=== PATIENT | female | born 1965 | race Caucasian/White ===

== ENCOUNTER 2017-01-14 17:49 | Emergency (ER) | payer SELFPAY ==
[~2017-01-14 17:49] MED LIST: ALBU6.7H INH; ASPI81TA45 PO; BACL10TA PO; CHLO1TAB PO; DIAZ2 PO; LEVO.112 PO; METO50CR PO
[2017-01-14 17:52] VITALS: BP 187/104; PULSE 89; RESP 13; TEMP 97.8; O2SAT 99
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
[2017-01-14] MEDS ORDERED: LEVO112T2 PO (18:04)
[2017-01-14] MEDS ORDERED: METO50TA11 PO (18:04)
[2017-01-14] MEDS ORDERED: BUPR75TA PO (18:04)
[2017-01-14] MEDS ORDERED: DIAZ2TAB PO (18:06)
[2017-01-14] MEDS ORDERED: BACL10TA PO (18:06)
[2017-01-14] MEDS ORDERED: LOVA40TA PO (18:06)
--- NOTE | 2017-01-14 18:23 | RADRPT ---
EXAM DATE/TIME: 01/14/2017 18:11 [facility] COMPARISON: No previous studies available for comparison. INDICATIONS : Right ankle pain after fall. MEDICAL HISTORY : None. SURGICAL HISTORY : None. ENCOUNTER: Initial ACUITY: 3 days PAIN SCORE: 10/10 LOCATION: Right lateral ankle. FINDINGS: Three view exam was performed of the right ankle. A displaced fracture of the distal fibula. Soft tis foreign swelling. Ankle mortise intact. No radiopaque foreign bodies are seen. Bony mineralization is n ormal. CONCLUSION: Mildly displaced fracture distal fibula. Simba Acosta MD on January 14, 2017 at 18:20 Board Certified Radiologist. This report was verified electronically.
--- NOTE | 2017-01-14 18:23 | RADRPT ---
EXAM DATE/TIME: 01/14/2017 18:12 [facility] COMPARISON: No previous studies available for comparison. INDICATIONS : Right knee pain after fall. MEDICAL HISTORY : None. SURGICAL HISTORY : None. ENCOUNTER: Initial ACUITY: 3 days PAIN SCORE: 10/10 LOCATION: Right lateral distal knee. FINDINGS: Four view examination of the right knee demonstrates no evidence of fracture or dislocation. Bony mi neralization is normal. The articular surfaces are intact. Questionable small effusion. The suprapa tellar soft tissues have a normal configuration. CONCLUSION: No acute fracture with questionable small effusion. Simba Acosta MD on January 14, 2017 at 18:21 Board Certified Radiologist. This report was verified electronically.
[2017-01-14] MEDS ORDERED: ACETAMINOPHEN/HYDROcodone 325 MG/5 MG TAB PO ONE (19:15)
--- NOTE | 2017-01-14 19:16 | PD ---
Physical Exam Date Seen by Provider: Jan 14, 2017 Time Seen by Provider: 19:14 Data Data Last Documented VS Vital Signs Date Time Temp Pulse Resp B/P Pulse Ox O2 Delivery O2 Flow Rate FiO2 01/14/17 17:52 97.8 89 13 187/104 99 Orders Ankle, Complete ([id number]) (01/14/17 18:00) Knee, Complete (4vws) (01/14/17 18:00) Splint Or Brace Apply/Monitor (01/14/17 19:13) Crutches (01/14/17 19:13) Acetamin-Hydrocod 325-5 Mg ([place] 5-325 (01/14/17 19:15) MDM Medical Record Reviewed: Yes Supervised Visit with MARIE: No Interpretation(s) Last 24 hours Impressions Knee X-Ray 01/14/17 1800 Signed Impressions: Service Date/Time: Saturday, January 14, 2017 18:12 - CONCLUSION: No acute fracture with questionable small effusion. Simba Acosta MD Ankle X-Ray 01/14/17 1800 Signed Impressions: Service Date/Time: Saturday, January 14, 2017 18:11 - CONCLUSION: Mildly displaced fracture distal fibula. Simba Acosta MD Differential Diagnosis MDM: High Differential diagnoses: Fracture, sprain, strain, dislocation, contusion, neurovascular injury Narrative Course Patient is placed in a posterior sugar tong splint, crutches, ice pack, Lortab 5 a grams by mouth. I spoke with Dr. Douglas who is agreed to follow patient up as an outpatient. He 'll see him within 1 week. This is right distal fibular fracture Diagnosis Primary Impression: Fracture of distal fibula Qualified Code: S82.831A - Closed fracture of distal end of right fibula, unspecified fracture morphology, initial encounter Referrals: Alexis Latham MD 1 week Orthopedist Patient Instructions: General Instructions, Ankle Fracture (ED) Departure Forms: Tests/Procedures, Work Release Special Instructions: No work 5 days. Additional Instruction: Rest the affected area as much as possible. Ice this area for 15-20 minutes at a time. You can do this every hour or as much as tolerated. Keep this area compressed (vielka bandage) as tolerated. Elevate this area. Use ibuprofen as needed for pain and inflammation. Lortab for severe pain. Please return to emergency department if your symptoms return or worsen. Follow up with your primary care provider. Take medications as prescribed. Please follow-up with Dr. Douglas the orthopedic call his office in the morning for appointment within 1 week.. Med/Other Pt SpecificInfo: Prescription(s) given Disposition: 01 DISCHARGE HOME Condition: Stable Fran Williamson Jan 14, 2017 19:16
[2017-01-14] MEDS ORDERED: HYDR-3533 PO (19:21)
== END 2017-01-14 20:18 | disposition home or self-care (01) ==
LOC: NEPK 17:49
DX: S82.891A Other fracture of right lower leg, initial encounter for closed fracture (principal); M25.561 Pain in right knee; X50.0XXA Overexertion from strenuous movement or load, initial encounter; X50.9XXA Other and unspecified overexertion or strenuous movements or postures, initial encounter; Y93.9 Activity, unspecified; Y92.003 Bedroom of unspecified non-institutional (private) residence as the place of occurrence of the external cause
CPT/HCPCS: 73564; 73610; 99283; E0113